=== PATIENT | male | born 2000 | race African-American/Black ===

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

== ENCOUNTER 2020-12-21 08:55 | Emergency (ER) | payer OTHER ==
[~2020-12-21] VITALS: Ht 188 cm; Wt 86.4 kg
[2020-12-21 09:16] VITALS: BP 137/75
[2020-12-21] MEDS ORDERED: IBUPROFEN 600 MG TABLET PO ONE (10:45)
== END 2020-12-21 11:30 | disposition home or self-care (01) ==
LOC: EMS 08:57
DX: S76.911A Strain of unspecified muscles, fascia and tendons at thigh level, right thigh, initial encounter (principal); F17.210 Nicotine dependence, cigarettes, uncomplicated; F12.90 Cannabis use, unspecified, uncomplicated; Z91.018 Allergy to other foods; X58.XXXA Exposure to other specified factors, initial encounter; Y93.72 Activity, wrestling; Y92.832 Beach as the place of occurrence of the external cause; Y99.8 Other external cause status
CPT/HCPCS: 99282; Z7502; Z7610